=== PATIENT | female | born 1945 | race Caucasian/White ===

== ENCOUNTER 2018-03-10 14:30 | Emergency (ER) | payer MEDICARE, OTHER ==
[2018-03-10 14:38] VITALS: BP 126/47
--- NOTE | 2018-03-10 15:13 | ED Physician Documentation ---
History of Present Illness - Stated complaint Stated Complaint: HEAD LAC - Chief complaint Chief Complaint: Laceration - History obtained from History obtained from: Patient, Family - History of Present Illness Timing: Today Pain level max: 0 Pain level now: 0 Improved by: holding pressure stopped the bleeding Worsened by: nothing - Additonal information Additional information: states that she hit her head taking apart a bed today. Td UTD Review of Systems GI: denies: Nausea, Vomiting Skin: denies: Rash Musculoskeletal: denies: Neck pain, Back pain Neurologic: denies: Focal weakness, Numbness, Syncope, Confused, Altered mental status, Headache, LOC PD PAST MEDICAL HISTORY - Past Medical History Cardiovascular: None, Arrhythmia, Other Respiratory: None Endocrine/Autoimmune: None GI: None : None HEENT: None Psych: None Musculoskeletal: None Derm: None - Past Surgical History /[employer]: section, Hysterectomy, Breast implants HEENT: Tonsil/Adenoidectomy - Present Medications Home Medications: Ambulatory Orders Medication Instructions Recorded Confirmed Lovastatin 40 mg ORAL DAILY 02/15/15 02/15/15 Verapamil HCl [Verapamil Sr] 240 mg ORAL DAILY 02/15/15 02/15/15 - Allergies Allergies/Adverse Reactions: Allergies Allergy/AdvReac Type Severity Reaction Status Date / Time No Known Drug Allergies Allergy Verified 03/10/18 14:38 PD ED PE NORMAL - Vitals Vital signs reviewed: Yes - General General: Alert and oriented X 3, No acute distress - HEENT HEENT: PERRL, EOMI, Moist mucous membranes, Other (scalp - 1cm linear, superficial laceration to the crown of the head. ) - Neck Neck: Supple, no meningeal sign, No bony TTP - Derm Derm: Warm and dry - Neuro Neuro: Alert and oriented X 3 - Psych Psych: Normal mood, Normal affect Results - Vitals Vitals: Vital Signs - 24 hr 03/10/18 14:35 Temperature 36.6 C Heart Rate 65 Respiratory 18 Rate Blood Pressure 126/47 L O2 Saturation 99 Oxygen O2 Source Room air PD MEDICAL DECISION MAKING - ED course Complexity details: considered differential, d/w patient, d/w family ED course: Patient with a superficial laceration/abrasion to the scalp. No suture or geoff required. It is not currently bleeding. Wound was cleansed and bandaged. Patient and family counseled regarding signs and symptoms for which I believe and urgent re-evaluation would be necessary. Patient with good understanding of and agreement to plan and is comfortable going home at this time This document was made in part using voice recognition software. While efforts are made to proofread this document, sound alike and grammatical errors may occur. Tetanus is up-to-date - Sepsis Event Vital Signs: Vital Signs - 24 hr 03/10/18 14:35 Temperature 36.6 C Heart Rate 65 Respiratory 18 Rate Blood Pressure 126/47 L O2 Saturation 99 Oxygen O2 Source Room air Departure - Departure Disposition: 01 Home, Self Care Clinical Impression: Scalp laceration Qualifiers: Encounter type: initial encounter Qualified Code(s): S01.01XA - Laceration without foreign body of scalp, initial encounter Condition: Good Instructions: ED Wound Care Follow-Up: Reinier Espitia MD [Primary Care Provider] - Within 1 week Comments: Return if you worsen. Keep the wound clean. Discharge Date/Time: 03/10/18 15:15
== END 2018-03-10 15:15 | disposition home or self-care (01) ==
LOC: ED 14:30
DX: S01.01XA Laceration without foreign body of scalp, initial encounter (principal); W22.8XXA Striking against or struck by other objects, initial encounter; Y93.89 Activity, other specified
CPT/HCPCS: 99282; 99283

== ENCOUNTER 2020-06-03 09:47 | Outpatient (CLI) | payer MEDICARE, OTHER ==
--- NOTE | 2020-06-03 11:32 | DEXA Report ---
PROCEDURE: Dexa Spine and/or Hip INDICATIONS: OSTEOPOROSIS TECHNIQUE: Dual energy x-ray absorptiometry (DXA) was performed on a Best [employer] System. Regions measur ed are the AP Spine, femoral neck, and if needed forearm. COMPARISON: None. FINDINGS: Lumbar Spine: Bone Mineral Density 1.073 g/cm/cm,T score -0.9, Left Femoral Neck: Bone Mineral Density 0.773 g/cm/cm, T score -1.9, (T score greater or equal to -1.0: NORMAL) (T score from -1.1 to -2.4: OSTEOPENIA) (T score less than or equal to -2.5 to: OSTEOPOROSIS) Impression: Osteopenia. Patients with diagnosis of osteoporosis or osteopenia should have regular bone mineral density assess ment. For those eligible for Medicare, routine testing is allowed once every 2 years. Testing frequ ency can be increased for patients who have rapidly progressing disease or for those who are receivin g medical therapy to restore bone mass. Reviewed by: Esteban Bowie MD on 06/03/2020 11:31 AM PDT Approved by: Esteban Bowie MD on 06/03/2020 11:31 AM PDT Station ID: [id number]
== END 2020-06-03 09:48 | disposition home or self-care (01) ==
LOC: DI 09:47
PROVIDERS: ATTEND Nurse Practitioner Family
DX: M85.88 Other specified disorders of bone density and structure, other site (principal)
CPT/HCPCS: 77080